=== PATIENT | female | born 1990 | race African-American/Black ===

== ENCOUNTER 2017-02-25 12:08 | Emergency (ER) | payer BC ==
[~2017-02-25] VITALS: Ht 165.1 cm; Wt 90.0 kg
[2017-02-25 12:09] VITALS: BP 137/92; PULSE 78; RESP 16; TEMP 98.8; O2SAT 99
--- NOTE | 2017-02-25 12:18 | PD ---
Physical Exam Date Seen by Provider: February 25, 2017 Time Seen by Provider: 12:15 Narrative 27 year old female presents to the emergency department for evaluation after syncopal episode. She states she had intercourse with her this morning. After sex, she noticed some vaginal bleeding. She states she has had vaginal spotting after sex before, but this was heavier. She went to clean up and had syncopal episode walking back to the bedroom. She states she did hit her head. Patient reports previous syncopal episode 7 years ago. She states she felt ok and paramedics checked her out, but felt lightheaded just prior to arrival so decided to come to the emergency department. Vital signs reviewed. Patient seen in triage, awaiting bed placement. Data Data Last Documented VS Vital Signs Date Time Temp Pulse Resp B/P Pulse Ox O2 Delivery O2 Flow Rate FiO2 02/25/17 12:09 98.8 78 16 137/92 99 Room Air [facility] Supervised Visit with JUDY: Glory Smith February 25, 2017 12:17
[2017-02-25] MEDS ORDERED: SODIUM CHLOR 0.9% 1000 ML INJ 1,000 ML IV ONE (12:31)
--- NOTE | 2017-02-25 12:37 | PD ---
HPI Chief Complaint: Syncope/Near-Syncope Time Seen by Provider: 12:31 Travel History International Travel<30 days: No Contact w/Intl Traveler<30days: No Traveled to known affect area: No History of Present Illness HPI 27 year old female presents to the ED for for syncope, patient states she had intercourse with her this morning. After sex, she noticed more than the usual amount of vaginal bleeding. She states she has had vaginal spotting after sex before, but this was heavier, like a period. She went to clean up and had syncopal episode walking back to the bedroom. She states she did hit her head. Patient reports previous syncopal episode 7 years ago. She was initially seen by paramedics but at that time felt okay. She went to multiple today and started feeling lightheaded and began. She also complains of pelvic cramping pains. She denies any vomiting, fevers, chest pains, shortness of breath, or any other symptoms. Modifying Factors: None Associated Signs & Symptoms: Syncopal episode, vaginal bleeding Risk Factors: None PFSH Past Medical History ?: Unknown LMP: 02/10/17 Past Surgical History Other Surgery: Yes (leep procedure) Social History Alcohol Use: Yes (RARELY) Tobacco Use: No Substance Use: No Allergies-Medications (Allergen,Severity, Reaction): Coded Allergies: No Known Allergies (Unverified , 02/25/17) Reported Meds & Prescriptions Reported Meds & Active Scripts Active No Active Prescriptions or Reported Medications Review of Systems Except as stated in HPI: all other systems reviewed are Neg Physical Exam Narrative GENERAL: Well-developed -Tajik young female patient who is currently in mild distress. Awake and oriented 3. SKIN: Focused skin assessment warm/dry. HEAD: Atraumatic. Normocephalic. EYES: Pupils equal and round. No scleral icterus. No injection or drainage. ENT: No nasal bleeding or discharge. Mucous membranes pink and moist. NECK: Trachea midline. No JVD. CARDIOVASCULAR: Regular rate and rhythm. No murmur appreciated. RESPIRATORY: No accessory muscle use. Clear to auscultation. Breath sounds equal bilaterally. GASTROINTESTINAL: Abdomen soft, non-tender, nondistended. Hepatic and splenic margins not palpable. Benign. GENITOURINARY: Normal external genitalia without lesions or erythema. Vaginal vault with small amount of blood and no significant drainage. Cervical os was closed without drainage. No cervical motion tenderness. Uterus nontender and nonenlarged. Bilateral adnexa nontender without masses. MUSCULOSKELETAL: No obvious deformities. No clubbing. No cyanosis. No edema. NEUROLOGICAL: Awake and alert. No obvious cranial nerve deficits. Motor grossly within normal limits. Normal speech. PSYCHIATRIC: Appropriate mood and affect; insight and judgment normal. Data Data Last Documented VS Vital Signs Date Time Temp Pulse Resp B/P Pulse Ox O2 Delivery O2 Flow Rate FiO2 02/25/17 12:09 98.8 78 16 137/92 99 Room Air Orders Electrocardiogram (02/25/17 12:31) Beta Hcg (Quant/Titer) (02/25/17 12:31) Ed Urine Pregnancytest Poc (02/25/17 12:31) Complete Blood Count With Diff (02/25/17 12:31) Comprehensive Metabolic Panel (02/25/17 12:31) Magnesium (Mg) (02/25/17 12:31) Act Partial Throm Time (Ptt) (02/25/17 12:31) Prothrombin Time / Inr (Pt) (02/25/17 12:31) Urinalysis - C+S If Indicated (02/25/17 12:31) Ecg Monitoring (02/25/17 12:31) Iv Access Insert/Monitor (02/25/17 12:31) Oximetry (02/25/17 12:31) Sodium Chloride 0.9% Flush (Ns Flush) (02/25/17 12:45) Sodium Chlor 0.9% 1000 Ml Inj (Ns 1000 M (02/25/17 12:31) Labs Laboratory Tests Test 02/25/17 12:50 White Blood Count 5.0 TH/MM3 Red Blood Count 4.23 MIL/MM3 Hemoglobin 12.0 GM/DL Hematocrit 35.4 % Mean Corpuscular Volume 83.8 FL Mean Corpuscular Hemoglobin 28.4 PG Mean Corpuscular Hemoglobin 33.9 % Concent Red Cell Distribution Width 12.9 % Platelet Count 198 TH/MM3 Mean Platelet Volume 10.4 FL Neutrophils (%) (Auto) 57.0 % Lymphocytes (%) (Auto) 32.9 % Monocytes (%) (Auto) 8.1 % Eosinophils (%) (Auto) 1.3 % Basophils (%) (Auto) 0.7 % Neutrophils # (Auto) 2.9 TH/MM3 Lymphocytes # (Auto) 1.7 TH/MM3 Monocytes # (Auto) 0.4 TH/MM3 Eosinophils # (Auto) 0.1 TH/MM3 Basophils # (Auto) 0.0 TH/MM3 CBC Comment DIFF FINAL Differential Comment Prothrombin Time 11.2 SEC Prothromb Time International 1.0 RATIO Ratio Activated Partial 26.8 SEC Thromboplast Time Urine Color YELLOW Urine Turbidity CLEAR Urine pH 7.0 Urine Specific Bruno 1.031 Urine Protein TRACE mg/dL Urine Glucose (UA) NEG mg/dL Urine Ketones NEG mg/dL Urine Occult Blood MOD Urine Nitrite NEG Urine Bilirubin NEG Urine Urobilinogen LESS THAN 2.0 MG/DL Urine Leukocyte Esterase NEG Urine RBC 37 /hpf Urine WBC LESS THAN 1 /hpf Urine Squamous Epithelial 2 /hpf Cells Urine Mucus FEW /lpf Microscopic Urinalysis Comment CULT NOT INDICATED Sodium Level 141 MEQ/L Potassium Level 4.1 MEQ/L Chloride Level 106 MEQ/L Carbon Dioxide Level 28.4 MEQ/L Anion Gap 7 MEQ/L Blood Urea Nitrogen 14 MG/DL Creatinine 0.79 MG/DL Estimat Glomerular Filtration 87 ML/MIN Rate Random Glucose 82 MG/DL Calcium Level 8.9 MG/DL Magnesium Level 2.1 MG/DL Total Bilirubin 0.2 MG/DL Aspartate Amino Transf 16 U/L (AST/SGOT) Alanine Aminotransferase 18 U/L (ALT/SGPT) Alkaline Phosphatase 93 U/L Total Protein 7.7 GM/DL Albumin 3.7 GM/DL Human Chorionic Gonadotropin, LESS THAN 1 Quant MIU/ML MDM Medical Decision Making Medical Screen Exam Complete: Yes Emergency Medical Condition: Yes Medical Record Reviewed: Yes Interpretation(s) Laboratory Tests Test 02/25/17 12:50 Monocytes (%) (Auto) 8.1 % (0.0-8.0) Urine Occult Blood MOD (NEG) Urine RBC 37 /hpf (0-3) Urine Mucus FEW /lpf (OCC) Estimat Glomerular Filtration 87 ML/MIN (>89) Rate Differential Diagnosis Vaginal bleeding and syncopevasovagal syncope versus symptomatic anemia versus menorrhagia versus threatened AB versus ectopic Narrative Course Abdomen is benign and I do not suspect an acute intra-abdominal process. She appears to be bleeding a small amount currently. At this point, she does not seem to have significantly active bleeding. My plan would be to release the patient with follow-up to [facility] as needed. Return for any worsening in bleeding, pain, or new symptoms as needed. The plan has been discussed with the patient and she states understanding. Diagnosis Primary Impression: Dysfunctional uterine bleeding Scripts No Active Prescriptions or Reported Meds Disposition: 01 DISCHARGE HOME Condition: Stable Aramis Dubose MD February 25, 2017 12:37
[2017-02-25] MEDS ORDERED: SODIUM CHLORIDE 0.9% FLUSH 10 ML FLUSH IVF PRN (12:45)
[2017-02-25 13:02] LABS: AUTOMATED NEUTROPHIL # 2.9 TH/MM3 (1.8-7.7); BASOPHIL % 0.7 % (0.0-2.0); EOSINOPHIL # 0.1 TH/MM3 (0-0.4); EOSINOPHIL % 1.3 % (0.0-4.0); HEMATOCRIT 35.4 % (35.0-46.0); HEMO FLAGS DIFF FINAL; LYMPH % 32.9 % (9.0-44.0); LYMPHOCYTE # 1.7 TH/MM3 (1.0-4.8); MEAN CELL VOLUME 83.8 FL (80.0-100.0); MEAN CORPUSCULAR HEMOGLOBIN 28.4 PG (27.0-34.0); MEAN CORPUSCULAR HGB CONC 33.9 % (32.0-36.0); MONO % 8.1 % (0.0-8.0); PLATELET COUNT 198 TH/MM3 (150-450); RED BLOOD COUNT 4.23 MIL/MM3 (4.00-5.30); RED CELL DISTRIBUTION WIDTH 12.9 % (11.6-17.2)
[2017-02-25 13:09] LABS: APTT (PATIENT) 26.8 SEC (24.3-30.1); PROTHROMBIN TIME - PATIENT 11.2 SEC (9.8-11.6)
[2017-02-25 13:13] LABS: BLOOD, URINE MOD (NEG); COMMENT (UR) CULT NOT INDICATED; CULTURE IF INDICATED CULT NOT INDICATED; GLUCOSE,URINE NEG (NEG); KETONE, URINE NEG (NEG); MUCUS URINE FEW /lpf (OCC); NITRITE,URINE NEG (NEG); SQUAMOUS EPITHELIAL CELL URINE 2 /hpf (0-5); URINE COLOR YELLOW (YELLW/STRAW)
[2017-02-25 13:21] LABS: ALT (GPT) 18 U/L (10-53); ANION GAP 7 MEQ/L (5-15); AST (GOT) 16 U/L (15-37); BICARBONATE 28.4 MEQ/L (21.0-32.0); BLOOD UREA NITROGEN 14 MG/DL (7-18); CHLORIDE 106 MEQ/L (98-107); GLOMERULAR FILTRATION RATE 87 ML/MIN (>89); MAGNESIUM 2.1 MG/DL (1.5-2.5); POTASSIUM 4.1 MEQ/L (3.5-5.1); SODIUM (NA) 141 MEQ/L (136-145)
[2017-02-25 13:25] LABS: ALKALINE PHOSPHATASE 93 U/L (45-117); BETA HCG QUANT LESS THAN 1 MIU/ML (0-5); TOTAL BILIRUBIN ADULT 0.2 MG/DL (0.2-1.0)
--- NOTE | 2017-02-25 21:50 | EKG ---
Date Performed: 02/25/2017 Time Performed: 12:44:18 PTAGE: 27 years EKG: Sinus rhythm NONSPECIFIC T-WAVE ABNORMALITY BORDERLINE ECG NO PREVIOUS TRACING DOCTOR: Lamar Fuentes Interpretating Date/Time 02/25/2017 21:46:48
== END 2017-02-25 13:52 | disposition home or self-care (01) ==
LOC: NEPD 12:08
DX: N93.8 Other specified abnormal uterine and vaginal bleeding (principal); R10.30 Lower abdominal pain, unspecified; R94.31 Abnormal electrocardiogram [ECG] [EKG]
CPT/HCPCS: 80053; 81001; 83735; 84702; 84703; 85025; 85610; 85730; 93005; 96360; 99284; J7030